=== PATIENT | female | born 1945 | race Hispanic/Latino ===

== ENCOUNTER 2018-09-13 14:17 | Emergency (ER) | payer MEDICARE, OTHER ==
[~2018-09-13] VITALS: Ht 160 cm; Wt 79.4 kg
--- OUTSIDE RECORDS SUMMARY | 2018-09-13 14:23 | XMS REPORT ---
Author Author Migration, Doctor Organization [facility] Address Unknown Phone Unavailable Care Team Providers Care Assistant Principal Name Role Phone Migration, Doctor Unavailable Unavailable PROBLEMS Type Condition ICD9-CM Code WHA49-EQ Code Onset Dates Condition Status SNOMED Code Problem Anxiety state 300.00 17 Mar, 2016 0 595946591 Problem Right knee pain 719.46 11 Jul, 2014 0 920722423 Problem Rash and other nonspecific skin eruption 782.1 Active 007792541 Problem Hyperlipidemia 272.4 Oct, 0 21523062 Problem Acute right ankle pain M25.571 07 Oct, 2015 0 432627097 Problem 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 Active 240119279 Problem Anxiety state F41.1 Mar, 0 524323213 Problem Acute chest wall pain 786.52 07 Oct, 2015 0 47216512 Problem Diabetic neuropathy E11.40 15 Oct, 2012 0 569408960 Problem Right knee pain M25.561 11 Jul, 2014 0 591194822 Problem Encounters for administrative purposes V68.9 Oct, 0 Problem Encounters for administrative purposes Z02.9 Oct, 0 Problem Type 2 diabetes, controlled, 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 Active 78084383 Problem Viral upper respiratory tract infection 465.9 Feb, 0 827147154 Problem Acute right ankle pain 719.47 07 Oct, 2015 0 687665410 Problem Depression with anxiety F41.8 Active 62302346 Problem Viral upper respiratory tract infection J06.9 Feb, 0 319934989 Problem Diabetes mellitus type 2, controlled, without complications 250.00 08 Jan, 2014 0 635587958 Problem Diabetic neuropathy 250.60 Oct, 0 279294856 Problem Diabetes mellitus type 2, controlled, without complications E11.9 08 Jan, 2014 0 263671229 Problem Acute chest wall pain R07.89 07 Oct, 2015 0 49872816 Problem Hyperlipidemia E78.5 Oct, 0 62963801 Problem Other chronic pain G89.29 Active 38229270 ALLERGIES No Information ENCOUNTERS Encounter Location Date Diagnosis [facility] [address] [address] July, [facility] [place] [address] [place] [address] Apr, Type 2 diabetes, controlled, 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 ; Depression with anxiety F41.8 and Pain in right ankle and joints of right foot M25.571 [facility] [address] [address] Feb, [facility] [address] [facility] [id number] [address] Feb, [facility] [id number] [address] Feb, [facility] [id number] [address] Jan, [facility] [id number] [place] [address] Mar, [facility] [address] [address] Jan, [facility] [address] [address] Jun, [facility] [address] [address] Jun, [facility] [address] [address] Dec, [facility] [id number] [address] Dec, [facility] [id number] [address] Dec, [facility] [id number] [address] Dec, [facility] [address] [address] Nov, [facility] [address] [facility] [id number] [place] [address] Feb, [facility] [address] [facility] [id number] [address] Feb, [facility] [address] [facility] [id number] [place] [address] Oct, IMMUNIZATIONS No Known Immunizations SOCIAL HISTORY Never Assessed REASON FOR VISIT [facility] [place] OF CARE VITAL SIGNS MEDICATIONS Medication Instructions Dosage Frequency Start Date End Date Duration Status Gabapentin 300 mg 1 capsule by Oral route 3 times per dayStart 1 po qday x1 day, then 1 po bid x1 day, then as above Dec, Active RESULTS No Results PROCEDURES No Known procedures INSTRUCTIONS MEDICATIONS ADMINISTERED No Known Medications MEDICAL (GENERAL) HISTORY Type Description Date Medical History type II diabetes with peripheral neuropathy Medical History anxiety Surgical History tubal ligation Surgical History ankle surgery Hospitalization History surgical
--- OUTSIDE RECORDS SUMMARY | 2018-09-13 14:23 | XMS REPORT ---
Author Author Migration, Doctor Organization [facility] Address Unknown Phone Unavailable Care Team Providers Care Supervisor Rice Milling Name Role Phone Migration, Doctor Unavailable Unavailable PROBLEMS Type Condition ICD9-CM Code BXZ90-JI Code Onset Dates Condition Status SNOMED Code Problem Anxiety state 300.00 17 Mar, 2016 0 821471696 Problem Right knee pain 719.46 11 Jul, 2014 0 430161972 Problem Rash and other nonspecific skin eruption 782.1 Active 363080337 Problem Hyperlipidemia 272.4 Oct, 0 46269636 Problem Acute right ankle pain M25.571 07 Oct, 2015 0 910308436 Problem 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 Active 109082371 Problem Anxiety state F41.1 Mar, 0 002944898 Problem Acute chest wall pain 786.52 07 Oct, 2015 0 69897047 Problem Diabetic neuropathy E11.40 15 Oct, 2012 0 585078967 Problem Right knee pain M25.561 11 Jul, 2014 0 084019710 Problem Encounters for administrative purposes V68.9 Oct, 0 Problem Encounters for administrative purposes Z02.9 Oct, 0 Problem Type 2 diabetes, controlled, 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 Active 50065030 Problem Viral upper respiratory tract infection 465.9 Feb, 0 542899846 Problem Acute right ankle pain 719.47 07 Oct, 2015 0 345893346 Problem Depression with anxiety F41.8 Active 79865212 Problem Viral upper respiratory tract infection J06.9 Feb, 0 272928175 Problem Diabetes mellitus type 2, controlled, without complications 250.00 08 Jan, 2014 0 134789245 Problem Diabetic neuropathy 250.60 Oct, 0 145323906 Problem Diabetes mellitus type 2, controlled, without complications E11.9 08 Jan, 2014 0 939659594 Problem Acute chest wall pain R07.89 07 Oct, 2015 0 14417396 Problem Hyperlipidemia E78.5 Oct, 0 83992389 Problem Other chronic pain G89.29 Active 51166782 ALLERGIES No Information ENCOUNTERS Encounter Location Date Diagnosis [facility] [place] [address] [place] [address] Apr, Type 2 diabetes, controlled, 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 ; Depression with anxiety F41.8 and Pain in right ankle and joints of right foot M25.571 [facility] [address] [place] [address] Feb, [facility] [id number] [place] [address] Feb, [facility] [id number], [place] [address] Feb, [facility] [id number] [place] [address] Jan, [facility] [id number] [place] [address] Mar, [facility] [id number] [place] [address] Jan, [facility] [address], [place] [address] Jun, [facility] [id number], [place] [address] Jun, [facility] [address], [place] [address] Dec, [facility] [address], [place] [address] Dec, [facility] [address], [place] [address] Dec, [facility] [id number] [place] [address] Dec, [facility] [address], [place] [address] Nov, [facility] [id number] [place] [address] Feb, [facility] [address] [facility] [id number] [place] [address] Feb, [facility] [address] [facility] [id number] [place] [address] Oct, IMMUNIZATIONS No Known Immunizations SOCIAL HISTORY Never Assessed REASON FOR VISIT [facility] [place] PLAN OF CARE VITAL SIGNS MEDICATIONS No Known Medications RESULTS No Results PROCEDURES No Known procedures INSTRUCTIONS MEDICATIONS ADMINISTERED No Known Medications MEDICAL (GENERAL) HISTORY Type Description Date Medical History type II diabetes with peripheral neuropathy Medical History anxiety Surgical History tubal ligation Surgical History ankle surgery Hospitalization History surgical
--- OUTSIDE RECORDS SUMMARY | 2018-09-13 14:23 | XMS REPORT | Continuity of Care Document ---
Author Organization Unknown Address Unknown Allergies There is no data. Medications There is no data. Problems There is no data. Procedures There is no data. Results There is no data. Encounters ACCT No. Visit Date/Time Discharge Status Pt. Type Provider Facility Loc./Unit Complaint [id number] 08/09/2018 09:40:00 08/09/2018 23:59:59 [facility] Outpatient [facility]
--- NOTE | 2018-09-13 14:52 | Diagnostic Imaging Report ---
INDICATION: Fall and right wrist pain. TIME OF EXAM: 02:18 p.m. FINDINGS: Three views of the right wrist demonstrate a comminuted fracture of the distal radius. There appears to be intra-articular extension. No significant displacement or angulation is seen. Distal ulna appears to be intact. Carpus and metacarpals are intact. IMPRESSION: Comminuted intra-articular distal radius fracture. Dictated by: Dictated on workstation # [id number]
[2018-09-13] MEDS ORDERED: fentaNYL INJECTION 100 MCG/2 ML AMP IM ONE (15:00)
[2018-09-13] MEDS ORDERED: ACHD5005 PO (15:09)
--- NOTE | 2018-09-13 15:09 | ED Upper Extremity ---
General Chief Complaint: Upper Extremity Stated Complaint: RT WRIST INJ Nursing Triage Note: Pt amb to ED reporting R wrist pain after lifting something while walking backwards at home and fell. Pt struck R wrist and she has splinted with plastic object and KAROLINE wrap. Nursing Sepsis Screen: No Definite Risk Source: patient Exam Limitations: no limitations History of Present Illness Date Seen by Provider: Sep 13, 2018 Time Seen by Provider: 14:25 Initial Comments Patient presents c/ c/o right wrist pain p/ falling and injuring it this afterno on. Denies any other injuries, or complaints. Onset: just prior to arrival Severity: moderate (09/15) Pain/Injury Location: right wrist Method of Injury: fell Modifying Factors: Worse With Movement; Improves With Rest Allergies and Home Medications Allergies Coded Allergies: No Known Drug Allergies (Unverified , 09/14/18) Home Medications Hydrocodone Bit/Acetaminophen 1 Tab Tab, 1 EACH PO Q4-6HR PRN for PAIN-MODERATE Prescribed by: CHARLIE ROSS on 09/13/18 1509 Patient Home Medication List Home Medication List Reviewed: Yes Review of Systems Constitutional: see HPI : No Musculoskeletal: see HPI, other (right wrist pain) All Other Systems Reviewed Negative Unless Noted: Yes (Negative excepted noted.) Past Wblukky-Esjipu-Evhzko Hx Patient Social History Alcohol Use: Occasionally Uses Recreational Drug Use: No Smoking Status: Current Everyday Smoker Type Used: Cigarettes 2nd Hand Smoke Exposure: No Recent Foreign Travel: No Contact w/Someone Who Travel: No Recent Infectious Disease Expo: No Recent Hopitalizations: No Physical Abuse: No Sexual Abuse: No Mistreated: No Fear: No Immunizations Up To Date Tetanus Booster (TDap): Unknown Seasonal Allergies Seasonal Allergies: No Past Medical History Surgeries: Yes (R ankle) Orthopedic Respiratory: No Cardiac: Yes (on HTN med for kidney protection) High Cholesterol Genitourinary: No Gastrointestinal: No Musculoskeletal: No Endocrine: Yes Diabetes, Non-Insulin dep HEENT: No Cancer: No Psychosocial: No Integumentary: No Blood Disorders: No Physical Exam Vital Signs Vital Signs - First Documented 09/13/18 14:22 Temp 99.0 Pulse 114 Resp 20 B/P (MAP) 151/83 (105) Pulse Ox 100 O2 Delivery Room Air Capillary Refill : Less Than 3 Seconds Height, Weight, BMI Height: 5'3.00" Weight: 175lbs. oz. 79.378419xg; BMI Method:Stated General Appearance: WD/WN, mild distress Cardiovascular: tachycardia Respiratory: no respiratory distress Wrist: Yes bone tenderness (right), Yes limited ROM (right), Yes pain (right) Neurologic/Psychiatric: alert, oriented x 3 Skin: warm/dry Progress/Results/Core Measures Results/Orders My Orders Orders - CHARLIE ROSS DO Wrist 3 View Right (09/13/18 14:31) Ed Ortho Supplies Order (09/13/18 14:53) Ortho Glass (09/13/18 14:53) Hydrocodone/Apap 7.5/325 Tab (Lortab 7. (09/13/18 15:15) Medications Given in ED Vital Signs/I&O Blood Pressure Mean: 105 Diagnostic Imaging Diagonstic Imaging: Xray Plain Films/CT/US/NM/MRI: other (right wrist is (+) for distal radius fracture.) Departure Impression Primary Impression: Fracture of radius Additional Impression: Fall Disposition: 01 HOME, SELF-CARE Condition: Stable Departure-Patient Inst. Decision time for Depature: 15:13 Referrals: [facility]/GABY (PCP) Primary Care Physician BOLIVAR IRVING APRN (Family) Primary Care Physician Patient Instructions: Wrist Fracture (DC) Add. Discharge Instructions: All discharge instructions reviewed with patient and/or family. Voiced understanding. NEED TO CALL [facility] AND SCHEDULE A FOLLOW UP APPOINTMENT WITH [facility] SOON POSSIBLE REGARDING YOUR BROKEN WRIST. Scripts Hydrocodone Bit/Acetaminophen (Hydrocodone/Acetaminophen 5/325mg Tablet) 1 Tab Tab 1 EACH PO Q4-6HR PRN for PAIN-MODERATE MDD 10 for 3 Days, #15 TAB 0 Refills Prov: CHARLIE ROSS DO 09/13/18 CHARLIE ROSS DO Sep 13, 2018 15:09
[2018-09-13] MEDS ORDERED: HYDROcodone/APAP 7.5 MG/325 MG (LORTAB, LORCET PLUS) TABLET PO ONE (15:15)
--- NOTE | 2018-09-13 15:30 | NUR ---
ASSISTED TO MAKE AN APPT FOR PATIENT LANGUAGE BARRIERS OF UNDERSTANDING THE PROCESS TO CALL THE NUMBER BEING PROVIDED TO SCHEDULE APPT. APPT WAS SCHEDULED FOR PATIENT WITH [facility] TOMORROW AT [place] 1:15 PM ARRIVAL FOR 1:30 PM APPT.
[2018-09-13 15:46] VITALS: BP 148/80
--- NOTE | 2018-09-13 15:46 | NUR ---
PT DISCHARGED TO HOME AFTER PLACCEMENT OF SUGARTONG SPLINT TO RIGHT ARM. R ARM PLACED IN SLING. GOOD CMS OF DISTAL EXTREMITY: PINK, WARM, BRISK CAP REFILL, MOTION AND SENSATION PRESENT.
== END 2018-09-13 15:46 | disposition home or self-care (01) ==
LOC: MERGE 14:19 → ER FS 14:19
DX: S52.501A Unspecified fracture of the lower end of right radius, initial encounter for closed fracture (principal); I10 Essential (primary) hypertension; E78.00 Pure hypercholesterolemia, unspecified; E11.9 Type 2 diabetes mellitus without complications; F17.210 Nicotine dependence, cigarettes, uncomplicated; W01.198A Fall on same level from slipping, tripping and stumbling with subsequent striking against other object, initial encounter; Y93.01 Activity, walking, marching and hiking; Y92.009 Unspecified place in unspecified non-institutional (private) residence as the place of occurrence of the external cause
CPT/HCPCS: 29105; 73110

== ENCOUNTER → 2018-09-23 | Outpatient (CLI) | payer OTHER ==
[~2018-09-23] MED LIST: ACHD5005 PO
--- NOTE | 2018-09-23 14:41 | Diagnostic Imaging Report ---
INDICATION: Follow-up right wrist fracture. TIME OF EXAM: 01:32 p.m. Correlation is made with prior study from 09/13/2018. FINDINGS: Wrist is encased in a fiberglass cast obscuring bone detail. Overall alignment of the distal radius appears stable and near-anatomic. Fracture lines are somewhat obscured by the cast. Distal ulna is intact. Carpus and metacarpals are intact. IMPRESSION: Bone detail is obscured by overlying cast material. Overall alignment appears to be near-anatomic. Dictated by: Dictated on workstation # [id number]
== END ==
LOC: RAD FS 13:28
PROVIDERS: ATTEND Nurse Practitioner
DX: S52.591D Other fractures of lower end of right radius, subsequent encounter for closed fracture with routine healing (principal)
CPT/HCPCS: 73110

== ENCOUNTER → 2018-10-07 | Outpatient (CLI) | payer OTHER ==
--- NOTE | 2018-10-07 13:07 | Diagnostic Imaging Report ---
INDICATION: Right wrist pain. COMPARISON: 09/23/2018. TECHNIQUE: Two views of right wrist. FINDINGS: The fiberglass cast has been removed. The mildly impacted distal radial fracture maintain similar alignment. There is progressive periosteal callus formation, although incomplete interosseous bridging is present. No radial or articular surface incongruency or significant dorsal displacement. Mild degenerative arthritis of the thumb base is similar. IMPRESSION: Mildly impacted distal radial fracture shows mild healing since prior exam. Dictated by: Dictated on workstation # [id number]
== END ==
LOC: RAD FS 09:17
PROVIDERS: ATTEND Nurse Practitioner
DX: S52.591D Other fractures of lower end of right radius, subsequent encounter for closed fracture with routine healing (principal)
CPT/HCPCS: 73100

== ENCOUNTER → 2018-10-25 | Outpatient (CLI) | payer MEDICARE ==
--- NOTE | 2018-10-25 11:01 | Diagnostic Imaging Report ---
INDICATION: Fracture of the right hand, followup. TIME OF EXAMINATION: 9:08 AM. COMPARISON: Correlation is made with prior right wrist radiographs from 10/07/2018. FINDINGS: Overlying cast material obscures bone detail. There is some sclerosis involving the fracture of the distal radius, consistent with healing. The fracture lines do remain partially visible. The alignment is anatomic. The carpus and metacarpals are unremarkable. IMPRESSION: Limited study due to bone detail being obscured by overlying cast material. There does appear to be distal radius healing. Dictated by: Dictated on workstation # [id number]
== END ==
LOC: RAD FS 08:56
PROVIDERS: ATTEND Nurse Practitioner
DX: S52.591D Other fractures of lower end of right radius, subsequent encounter for closed fracture with routine healing (principal)
CPT/HCPCS: 73100

== ENCOUNTER → 2018-11-15 | Outpatient (CLI) | payer MEDICARE ==
--- NOTE | 2018-11-15 16:54 | Diagnostic Imaging Report ---
INDICATION: Radial injury. EXAMINATION: AP and lateral views of the right wrist are obtained with comparison made to study of 10/25/2018. FINDINGS: There has been interval removal of cast material. Slightly angulated subacute distal radial metaphyseal fracture is again identified with sclerosis indicating developing callus. There is no evidence of articular surface offset. There is mild irregularity involving the ulnar styloid process likely due to nondisplaced avulsion fracture. Otherwise, no acute fracture is identified. IMPRESSION: Slightly angulated nonacute distal radial metaphyseal fracture. Dictated by: Dictated on workstation # [id number]
== END ==
LOC: RAD FS 12:56
PROVIDERS: ATTEND Nurse Practitioner
DX: S52.591D Other fractures of lower end of right radius, subsequent encounter for closed fracture with routine healing (principal)
CPT/HCPCS: 73100

== ENCOUNTER → 2019-05-11 | Outpatient (CLI) | payer MEDICARE ==
--- NOTE | 2019-05-11 16:00 | Diagnostic Imaging Report ---
INDICATION: Abdominal pain, intermittent lower abdominal pain and constipation x2 weeks. TECHNIQUE: Supine and upright view of the abdomen, 3:43 p.m. CORRELATION STUDY: None. FINDINGS: Ssoh-ra-cvqhtzrc severity fecal retention is noted. No evidence of large fecal impaction. No suggestion for high-degree bowel obstruction. Lung bases are clear. IMPRESSION: 1. Aoon-yf-ibzrqstj severity fecal retention. No evidence for high-degree bowel obstruction. Dictated by: Dictated on workstation # [id number]
== END ==
LOC: RAD FS 15:34
PROVIDERS: ATTEND Nurse Practitioner Family
DX: K59.00 Constipation, unspecified (principal)
CPT/HCPCS: 74019